=== PATIENT | female | born 1960 | race African-American/Black ===

== ENCOUNTER 2020-09-30 09:18 | Emergency (ER) | payer OTHER ==
[~2020-09-30] VITALS: Ht 170.2 cm; Wt 118.8 kg
--- NOTE | 2020-09-30 09:28 | NUR ---
I FEEL MY HEART RACING SINCE 399 TODAY. FEELING ANXIOUS. PATIENT A/OX4, BREATHING EVEN AND UNLABORED, NO SOB NOTED, PLACED ON THE INTERIOR DESIGN PRINCIPAL.
[2020-09-30] MEDS ORDERED: IV NS 0.9% 1,000 ML BAG IV ONE (09:30)
[2020-09-30 09:59] LABS: CALCIUM, SERUM 9.5 mg/dL (8.5-10.1); CARBON DIOXIDE 29 mmol/L (21-32); CHLORIDE 102 mmol/L (98-107); CREATININE 0.9 mg/dL (0.6-1.3); GLUCOSE 127 mg/dL (74-106); POTASSIUM 3.1 mmol/L (3.5-5.1); SODIUM SERUM 143 mmol/L (136-145); UREA NITROGEN, BLOOD 14 mg/dL (7-18)
[2020-09-30 10:00] LABS: BASOPHILS # (AUTO) 0.1 K/uL (0.0-0.2); BASOPHILS % (AUTO) 0.6 % (0.0-2.0); EOSINOPHILS % (AUTO) 0.9 % (0.0-6.0); HEMATOCRIT 39 % (33-45); HEMOGLOBIN 13.5 g/dL (11.5-14.8); LYMPHOCYTES # (AUTO) 1.7 K/uL (0.8-4.8); LYMPHOCYTES % (AUTO) 20.2 % (20.0-44.0); MEAN CORPUSCULAR HGB CONC 34 g/dl (31.0-36.0); MEAN CORPUSCULAR VOLUME 90 fL (82-100); MONOCYTES # (AUTO) 0.5 K/uL (0.1-1.30); NEUTROPHILS # (AUTO) 6.1 K/uL (1.8-8.9); NEUTROPHILS % (AUTO) 72.3 % (43.0-81.0); PLATELET COUNT (AUTO) 307 K/uL (150-450); RED BLOOD CELL COUNT(AUTO) 4.38 MIL/uL (4.0-5.2); WHITE BLOOD COUNT (AUTO) 8.4 K/uL (4.3-11.0)
[2020-09-30 10:03] LABS: PHOSPHORUS 3.2 mg/dL (2.5-4.9)
[2020-09-30] MEDS ORDERED: POTASSIUM CHLORIDE 20 MEQ TAB.PRT.SR PO ONE ×2 (10:30→10:33)
[2020-09-30 10:33] LABS: THYROID STIMULATING HORMONE 1.445 uIU/mL (0.358-3.74)
--- NOTE | 2020-09-30 10:57 | NUR ---
PATIENT STS PALPITATIONS HAS IMPROVED. NO DISTRESS NOTED.
--- NOTE | 2020-09-30 11:16 | NUR ---
Patient a/ox4, breathing even and unlabored, ambulatory with steady gait. IV removed. Catheter intact and site benign. Pressure and 4x4 applied to site. No bleeding noted. Patient discharged to home in stable condition. Written and verbal after care instructions given. Patient verbalizes understanding of instruction.
[2020-09-30 11:19] VITALS: BP 142/80
== END 2020-09-30 11:19 | disposition home or self-care (01) ==
LOC: ER 09:18
DX: R00.2 Palpitations (principal); R00.0 Tachycardia, unspecified; I10 Essential (primary) hypertension; E11.9 Type 2 diabetes mellitus without complications
CPT/HCPCS: 36415; 71045; 80048; 83735; 84100; 84443; 84484; 85025; 85378; 93005; 96360; 99285; J7030